=== PATIENT | female | born 1940 | race Two or more races ===

== ENCOUNTER 2018-11-28 14:11 | Emergency (ER) | payer OTHER ==
[~2018-11-28] VITALS: Ht 154.9 cm; Wt 68.0 kg
--- NOTE | 2018-11-28 14:22 | NUR ---
BIB [facility], C/O NAUSEA/VOMITING, DIALYSIS WAS NOT DONE. PT ALSO HAS GENERALIZED WEAKNESS. DIALYSIS ACCESS IS AT RIGHT UPPER CHEST. SKIN INTACT AND NO ACUTE DISTRESS NOTED. AOX4, HYPERTENSIVE, RR EVEN AND UNLABORED ON RA. READY FOR EVAL.
--- NOTE | 2018-11-28 15:17 | NUR ---
FAMILY AT BEDSIDE
[2018-11-28 15:38] LABS: BASOPHILS # (AUTO) 0.1 /CMM (0.0-0.2); BASOPHILS % (AUTO) 0.3 % (0.0-2.0); HEMATOCRIT 28 % (33-45); HEMOGLOBIN 9.1 g/dL (11.5-14.8); LYMPHOCYTES # (AUTO) 0.3 /CMM (0.8-4.8); LYMPHOCYTES % (AUTO) 1.7 % (20.0-44.0); MEAN CORPUSCULAR HGB CONC 32 g/dl (31.0-36.0); MEAN CORPUSCULAR VOLUME 103 fL (82-100); MONOCYTES % (AUTO) 5.9 % (2.0-12.0); NEUTROPHILS # (AUTO) 16.3 /CMM (1.8-8.9); NEUTROPHILS % (AUTO) 92.1 % (43.0-81.0); PLATELET COUNT (AUTO) 247 /CMM (150-450); RED BLOOD CELL COUNT(AUTO) 2.72 MIL/uL (4.0-5.2); WHITE BLOOD COUNT (AUTO) 17.7 K/uL (4.3-11.0)
[2018-11-28 15:51] LABS: ALANINE AMINOTRANSFERASE 26 U/L (12-78); ALBUMIN 3.4 g/dL (3.4-5.0); ALKALINE PHOSPHATASE 93 U/L (46-116); ASPARTATE AMINOTRANSFERASE 27 U/L (15-37); BILIRUBIN,DIRECT 0.2 mg/dL (0.0-0.2); BILIRUBIN,TOTAL 0.7 mg/dL (0.2-1.0); CARBON DIOXIDE 26 mmol/L (21-32); CHLORIDE 97 mmol/L (98-107); CREATININE 6.7 mg/dL (0.6-1.3); GLUCOSE 217 mg/dL (74-106); POTASSIUM 3.9 mmol/L (3.5-5.1); SODIUM SERUM 137 mmol/L (136-145); TOTAL PROTEIN, SERUM 8.3 g/dL (6.4-8.2)
[2018-11-28 15:54] LABS: UREA NITROGEN, BLOOD 84 mg/dL (7-18)
[2018-11-28 16:03] LABS: LYMPHOCYTES % (MANUAL) 3 % (16-48); MONOCYTES % (MANUAL) 5 % (0-11.0); NEUTROPHILS % (MANUAL) 92 (42-76)
[2018-11-28] MEDS ORDERED: LEVOFLOXACIN 750 MG /D5W 150ML 150 ML IV ONE ×2 (16:24→16:30)
--- NOTE | 2018-11-28 17:35 | NUR ---
CALLED DAREK ZHENG
--- NOTE | 2018-11-28 18:10 | NUR ---
ASSISTED PT TO BEDPAN
--- NOTE | 2018-11-28 18:22 | NUR ---
PT UNABLE TO PRODUCE URINE. ALSO C/O CONSTIPATION. NOTIFIED.
[2018-11-28] MEDS ORDERED: VANCOMYCIN 1 GM in IV D5W 250 ML IV ONE (18:30)
[2018-11-28] MEDS ORDERED: VANCOMYCIN 1 GM VIAL ONE (18:31)
--- NOTE | 2018-11-28 19:31 | NUR ---
CALLED [facility], NO ETA UPDATE PER REP
--- NOTE | 2018-11-28 19:39 | NUR ---
Pt accepted to [facility] by Dr. Inman. ETA for transport 2029. # for report [phone]
[2018-11-28 20:20] VITALS: BP 167/71
--- NOTE | 2018-11-28 20:21 | NUR ---
REPORT GIVEN TO PRN [address], AND MATI HERNANDEZ AT [facility] FOR DIONISIO.
== END 2018-11-28 20:20 | disposition short-term general hospital (02) ==
LOC: ER 14:11
DX: A41.9 Sepsis, unspecified organism (principal); I12.0 Hypertensive chronic kidney disease with stage 5 chronic kidney disease or end stage renal disease; E11.22 Type 2 diabetes mellitus with diabetic chronic kidney disease; N18.6 End stage renal disease; Z99.2 Dependence on renal dialysis; Z98.890 Other specified postprocedural states; Z88.0 Allergy status to penicillin
CPT/HCPCS: 36415; 70450; 71045; 80048; 80076; 83605; 84484; 85025; 85730; 87040 ×2; 93005; 96365; 96367; 99285; J1956; J3370

== ENCOUNTER 2021-06-16 14:21 | Emergency (ER) | payer OTHER ==
[~2021-06-16] VITALS: Ht 154.9 cm; Wt 52.2 kg
--- NOTE | 2021-06-16 14:30 | NUR ---
BIB [facility] FOR NAUSEA AND VOMITING S/P FINISHING DIALLYSIS TODAY. PT IS EXPELLING BROWN LIQUID EMESIS. EMESIS LOOKS LIKE OLD BLOOD, NO BRIGHT RED BLOOD. PULSE OX 83% ON ARRIVAL, PLACED PT ON NASAL CANNULA 6L. A FIB ON MONITOR. A&O TO PERSON. PT ACTIVELY VOMITING WITH WET COUGH EVERY 4 MINUTES. Addendum: 06/16/21 at 1659 by LEANDRO A&OX4
--- NOTE | 2021-06-16 14:53 | NUR ---
BLOOD SAMPLE OBTAINED AND SENT TO LAB
--- NOTE | 2021-06-16 14:55 | NUR ---
SPOKE WITH [facility] AND OPENED CASE
[2021-06-16] MEDS ORDERED: ONDANSETRON HCL/PF - ER 4 MG/2 ML VIAL IV ONE (15:00)
--- NOTE | 2021-06-16 15:03 | NUR ---
RADIOLOGY AT BEDSIDE
[2021-06-16 15:07] LABS: BASOPHILS # (AUTO) 0.1 K/uL (0.0-0.2); BASOPHILS % (AUTO) 0.6 % (0.0-2.0); HEMATOCRIT 30 % (33-45); HEMOGLOBIN 9.4 g/dL (11.5-14.8); LYMPHOCYTES # (AUTO) 0.4 K/uL (0.8-4.8); LYMPHOCYTES % (AUTO) 2.7 % (20.0-44.0); MEAN CORPUSCULAR HGB CONC 32 g/dl (31.0-36.0); MEAN CORPUSCULAR VOLUME 103 fL (82-100); MONOCYTES # (AUTO) 0.4 K/uL (0.1-1.30); MONOCYTES % (AUTO) 2.6 % (2.0-12.0); NEUTROPHILS # (AUTO) 14.3 K/uL (1.8-8.9); NEUTROPHILS % (AUTO) 94.1 % (43.0-81.0); PLATELET COUNT (AUTO) 279 K/uL (150-450); RED BLOOD CELL COUNT(AUTO) 2.89 MIL/uL (4.0-5.2); WHITE BLOOD COUNT (AUTO) 15.2 K/uL (4.3-11.0)
[2021-06-16] MEDS ORDERED: IV NS 0.9% 250 ML IV ONE (15:07)
[2021-06-16] MEDS ORDERED: CT SWABBABLE VALVE TRANS SET 1 EA INFUS.SET MC ONE (15:07)
[2021-06-16] MEDS ORDERED: IOHEXOL-350 100 ML VIAL IV ONE (15:07)
[2021-06-16] MEDS ORDERED: ONDANSETRON HCL/PF 4 MG/2 ML VIAL ONE (15:11)
[2021-06-16 15:14] LABS: CALCIUM, SERUM 8.2 mg/dL (8.5-10.1); CARBON DIOXIDE 31 mmol/L (21-32); CHLORIDE 96 mmol/L (98-107); CREATININE 2.4 mg/dL (0.6-1.3); GLUCOSE 186 mg/dL (74-106); POTASSIUM 3.2 mmol/L (3.5-5.1); SODIUM SERUM 134 mmol/L (136-145); UREA NITROGEN, BLOOD 15 mg/dL (7-18)
[2021-06-16] MEDS ORDERED: FURO40TA5 PO (15:24)
[2021-06-16] MEDS ORDERED: AMLO-213 PO (15:24)
[2021-06-16] MEDS ORDERED: SEVE800T28 PO (15:24)
[2021-06-16] MEDS ORDERED: LOSA25TA27 PO (15:24)
[2021-06-16] MEDS ORDERED: BISO5TAB20 PO (15:24)
[2021-06-16] MEDS ORDERED: HYDR100T27 PO (15:24)
[2021-06-16] MEDS ORDERED: ISOS30TA86 PO (15:24)
[2021-06-16] MEDS ORDERED: ATOR40TA PO (15:24)
[2021-06-16] MEDS ORDERED: CLON0.1T PO (15:24)
[2021-06-16] MEDS ORDERED: ACET-868 PO (15:24)
[2021-06-16] MEDS ORDERED: MELA3TAB41 PO (15:24)
[2021-06-16] MEDS ORDERED: ASPI-1420 PO (15:24)
[2021-06-16 15:26] LABS: ALANINE AMINOTRANSFERASE 30 U/L (12-78); ALBUMIN 3.4 g/dL (3.4-5.0); ALKALINE PHOSPHATASE 121 U/L (46-116); ASPARTATE AMINOTRANSFERASE 35 U/L (15-37); BILIRUBIN,DIRECT 0.3 mg/dL (0.0-0.2); BILIRUBIN,TOTAL 0.6 mg/dL (0.2-1.0); LIPASE 229 U/L (73-393)
--- NOTE | 2021-06-16 15:47 | NUR ---
pt taken to ct
--- NOTE | 2021-06-16 16:27 | NUR ---
CALLED SON, LYNN [phone], UPDATED HIM. SAYS PREFERS THAT SHE BE ADMITTED TO [facility]
--- NOTE | 2021-06-16 16:58 | NUR ---
COVID SAMPLE OBTAINED AND SENT TO LAB
--- NOTE | 2021-06-16 19:27 | NUR ---
REC'D A CALL FROM TAMANNA AT [facility] W/ FOLLOWING TRANSFER INFO: PT WILL GO TO [facility] , ACCEPTED BY Niko JAMIL # FOR REPORT: [phone] ALS TRANSPO W/ PRN ETA : 2030
--- NOTE | 2021-06-16 19:51 | NUR ---
Andrey morales in ED - 06/16/21 at 1952 by ROSAURA DONAVAN ARREAGA FROM [facility]
--- NOTE | 2021-06-16 19:53 | NUR ---
UPDATED WHITLEY FROM [facility]
--- NOTE | 2021-06-16 20:13 | NUR ---
GAVE REPORT TO MATI HINKLE FOR DIONISIO AT [facility]
--- NOTE | 2021-06-16 20:37 | NUR ---
GAVE REPORT TO EMS
[2021-06-16 20:38] VITALS: BP 130/75
--- NOTE | 2021-06-16 21:00 | NUR ---
pt was transferred to [facility] under ACLS in stable condition via [facility]
== END 2021-06-16 21:02 | disposition short-term general hospital (02) ==
LOC: ER 14:24
DX: R09.02 Hypoxemia (principal); E11.22 Type 2 diabetes mellitus with diabetic chronic kidney disease; I13.2 Hypertensive heart and chronic kidney disease with heart failure and with stage 5 chronic kidney disease, or end stage renal disease; I50.9 Heart failure, unspecified; N18.6 End stage renal disease; Z99.2 Dependence on renal dialysis; Z20.822 Contact with and (suspected) exposure to COVID-19; D72.829 Elevated white blood cell count, unspecified; Z88.0 Allergy status to penicillin; Z88.8 Allergy status to other drugs, medicaments and biological substances; E87.1 Hypo-osmolality and hyponatremia; K80.20 Calculus of gallbladder without cholecystitis without obstruction
CPT/HCPCS: 36415; 70450; 71045; 71275; 75635; 80048; 80076; 83690; 84484; 85025; 87426; 93005; 96374; 99291; 99292; C9803; J2405; J7050; Q9967